=== PATIENT | female | born 1950 | race Caucasian/White ===

== ENCOUNTER 2020-01-11 08:20 | Day surgery (SDC) | payer OTHER ==
[2020-01-07 12:28] VITALS: BMI 21.9
[2020-01-11] MEDS ORDERED: PROPOFOL 20 ML ONE ×2 (09:50)
[2020-01-11 13:38] VITALS: TEMP 97.9
[2020-01-11 13:41] VITALS: BP 111/53; PULSE 67
== END 2020-01-11 10:35 | disposition home or self-care (01) ==
LOC: FASU 08:20
PROVIDERS: ATTEND Internal Medicine Gastroenterology
PROC: 0DBN8ZX Excision of Sigmoid Colon, Via Natural or Artificial Opening Endoscopic, Diagnostic (ICD-10-PCS; principal; 2020-01-11 09:52)
DX: Z12.11 Encounter for screening for malignant neoplasm of colon (principal); D12.5 Benign neoplasm of sigmoid colon; K57.30 Diverticulosis of large intestine without perforation or abscess without bleeding
CPT/HCPCS: 88305-TC

== ENCOUNTER 2023-01-28 10:41 | Day surgery (SDC) | payer OTHER ==
[2023-01-24 11:49] VITALS: BMI 20.5
[2023-01-28 12:29] VITALS: RESP 16; TEMP 97
[2023-01-28 12:32] VITALS: BP 124/62; PULSE 68
== END 2023-01-28 12:47 | disposition home or self-care (01) ==
LOC: FASU-ENDO 10:41
PROVIDERS: ATTEND Internal Medicine Gastroenterology
PROC: 0DJD8ZZ Inspection of Lower Intestinal Tract, Via Natural or Artificial Opening Endoscopic (ICD-10-PCS; principal; 2023-01-28 11:58)
DX: Z12.11 Encounter for screening for malignant neoplasm of colon (principal); K57.30 Diverticulosis of large intestine without perforation or abscess without bleeding; Z86.010 Personal history of colon polyps; Z83.719 Family history of colon polyps, unspecified